=== PATIENT | female | born 1940 | race Caucasian/White ===

== ENCOUNTER 2018-12-17 12:00 | Outpatient (RCR) | payer MEDICARE ==
--- NOTE | 2018-11-24 13:32 | NUR ---
11/21/18 Patient in today for Treatment team review. Pt presents clean and neat, alert and oriented x 4. Pt states her husbands cancer progression has slowed down and he is doing better. Pt states she is getting alot of support from IOP group. Pt denies any suicidal thoughts at present time. No new medications and/or changes since last treatment review. pt will continue with IOP 3x/week. Pt will follow up in one month. Treatment team concluded.
[2018-11-27 07:18] VITALS: BP 135/87
--- NOTE | 2018-11-27 08:55 | NUR ---
11/26/18 1308 Patient in the office for monthly vital signs. Pt's vital signs within normal limits and charted. Pt discussed that her husbands cancer has slowed down in progression. Pt states she has to feed through a feeding tube. Pt states that initially this was hard for her to do but she is doing it and coping. Will continue to follow up with pt.
--- NOTE | 2018-12-01 13:59 | NUR ---
1333 Call from patient stating taht she has a bill that is being denied. Pt states that there are alot of charges that are declining. Pt informed to bring this in with her so that it can be addressed. Pt also states that she hurt her back on Saturday and is still awaiting xray results. Pt states she will call back to let staff know the outcome. Will continue to follow up.
--- NOTE | 2018-12-01 14:50 | NUR ---
1333 Call from patient stating she has a list of billing charges that are being declined. Pt advised to bring in this paperwork so this can be addressed. Pt also states that on Saturday, she fell into her countertop stating she was busy doing things in the kitchen. Pt states she went to a walk in clinic and had an xray. Pt states she is still awaiting results. Will follow up with pt.
[~2018-12-17] VITALS: Ht 165.1 cm; Wt 74.4 kg
[~2018-12-17 12:00] MED LIST: ACYCLOVIR400 MG PO; CLONAZEP ODT1 MG PO; OMEPRAZOLE20 M2 PO; ROPINIROLE1 MG PO; TRAZODONE50 MG PO; ZOLOFT50 MG PO
--- NOTE | 2018-12-18 07:56 | NUR ---
12/17/18 1246 Patient in office stating that she has an appointment for a biopsy of her thyroid. Pt stated she had other options but decided on this. Pt also states that she had a CT of her abdomen. Pt states she is unsure why she needed a CT. will continue to follow up with Pt.
== END 2018-12-18 23:59 | disposition home or self-care (01) ==
LOC: PATHWAYS 12:00
PROVIDERS: ATTEND Specialist
DX: F33.8 Other recurrent depressive disorders (principal); F41.1 Generalized anxiety disorder